=== PATIENT | male | born 1985 | race Caucasian/White ===

== ENCOUNTER 2021-12-07 10:33 | Outpatient (CLI) | payer OTHER ==
[2021-12-07] VITALS (8 sets, daily range): BP systolic 123–138; BP diastolic 80–95; PULSE 54–104; TEMP 98
[~2021-12-07] VITALS: Ht 175.3 cm; Wt 68.9 kg
--- NOTE | 2021-12-07 13:28 | NUR ---
Discharge instructions given to pt.Pt verbalizes understanding.Pt escortedout by xuan munoz.
== END 2021-12-07 13:31 ==
LOC: COL.RAD 10:33
DX: M54.12 Radiculopathy, cervical region (principal); Z98.1 Arthrodesis status
CPT/HCPCS: Q9967